=== PATIENT | male | born 1995 | race Caucasian/White ===

== ENCOUNTER 2017-02-24 10:00 | Emergency (ER) | payer OTHER ==
[2017-02-24 10:05] VITALS: BP 138/67; PULSE 68; TEMP 98.1; BMI 22.8
--- NOTE | 2017-02-24 10:40 | PDOC ---
History of Present Illness - General History Source: Patient Exam Limitations: No Limitations - History of Present Illness Initial Comments: 02/24/17 11:05 The patient is a 21 year old male, with no significant past medical history who presents to the emergency department with R flank pain for the past 2 weeks. Patient reports the pain was initially intermittent and resolved on its own however last night the pain progressively worsened and remained constant. Patient describes sharp, R sided pain, 8/10 in severity with no associated symptoms. Patient denies any hx of kidney stones. He denies dysuria, frequency , urgency or hematuria. Patient denies any heavy lifting. He denies chest pain, headache or dizziness. He denies fever, chills, abdominal pain, nausea, vomit, diarrhea or constipation. Patient denies sick contacts or recent travel. Allergies: NKA Past surgical history: None Social history: None PCP: Dr. Joaquin Youngblood <Kirsten Rico - Last Filed: 02/24/17 11:31> <Livia Hyman - Last Filed: 02/24/17 12:19> - General Chief Complaint: Pain, Acute Stated Complaint: LT SIDE PAIN Time Seen by Provider: 02/24/17 10:12 Past History <Kirsten Rico - Last Filed: 02/24/17 11:31> - Suicide/Smoking/Psychosocial Hx Smoking History: Never smoked Have you smoked in the past 12 months: No Information on smoking cessation initiated: No Hx Alcohol Use: Yes (Occasionally) Drug/Substance Use Hx: No Substance Use Type: None <Livia Hyman - Last Filed: 02/24/17 12:19> - Past Medical History Allergies/Adverse Reactions: Allergies Allergy/AdvReac Type Severity Reaction Status Date / Time No Known Allergies Allergy Verified 02/24/17 10:05 Home Medications: Ambulatory Orders NK [No Known Home Medication] 02/24/17 Review of Systems - Review of Systems Able to Perform ROS?: Yes Comments:: 02/24/17 11:05 GENERAL/CONSTITUTIONAL: No fever or chills. No weakness. HEAD, EYES, EARS, NOSE AND THROAT: No change in vision. No ear pain or discharge. No sore throat. GASTROINTESTINAL: No nausea, vomiting, diarrhea or constipation. GENITOURINARY: + R sided pain. No dysuria, frequency, or change in urination. CARDIOVASCULAR: No chest pain or shortness of breath. RESPIRATORY: No cough, wheezing, or hemoptysis. MUSCULOSKELETAL: No joint or muscle swelling or pain. No neck or back pain. SKIN: No rash NEUROLOGIC: No headache, vertigo, loss of consciousness, or change in strength/ sensation. ENDOCRINE: No increased thirst. No abnormal weight change. HEMATOLOGIC/LYMPHATIC: No anemia, easy bleeding, or history of blood clots. ALLERGIC/IMMUNOLOGIC: No hives or skin allergy. <Kirsten Rico - Last Filed: 02/24/17 11:31> *Physical Exam - Vital Signs Last Vital Signs Temp Pulse Resp BP Pulse Ox 98.1 F 68 14 138/67 98 02/24/17 10:02 02/24/17 10:02 02/24/17 10:02 02/24/17 10:02 02/24/17 10:02 - Physical Exam Comments: 02/24/17 11:05 GENERAL: Awake, alert, and fully oriented, in no acute distress HEAD: No signs of trauma EYES: PERRLA, EOMI, sclera anicteric, conjunctiva clear ENT: Auricles normal inspection, hearing grossly normal, nares patent, oropharynx clear without exudates. Moist mucosa NECK: Normal ROM, supple, no lymphadenopathy, JVD, or masses LUNGS: Breath sounds equal, clear to auscultation bilaterally. No wheezes, and no crackles HEART: Regular rate and rhythm, normal S1 and S2, no murmurs, rubs or gallops ABDOMEN: +Tenderness to R side in mid axillary line. Soft, nontender, normoactive bowel sounds. No guarding, no rebound. No masses EXTREMITIES: Normal range of motion, no edema. No clubbing or cyanosis. No cords, erythema, or tenderness NEUROLOGICAL: Cranial nerves II through XII grossly intact. Normal speech, normal gait SKIN: Warm, Dry, normal turgor, no rashes or lesions noted. <Kirsten Rico - Last Filed: 02/24/17 11:31> - Vital Signs Last Vital Signs Temp Pulse Resp BP Pulse Ox 98.1 F 68 14 138/67 98 02/24/17 10:02 02/24/17 10:02 02/24/17 10:02 02/24/17 10:02 02/24/17 10:02 <Livia Hyman - Last Filed: 02/24/17 12:19> Medical Decision Making - Medical Decision Making 02/24/17 12:[address] and UA results with patient- no UTI, no kidney stone. There is no obvious source of pain at present. Abd is soft and benign- I do not suspect gallbladder pathology, would not obtain additional testing at this time. He has an appointment with his PMD in 1 hour. Will DC. <Livia Hyman - Last Filed: 02/24/17 12:19> *DC/Admit/Observation/Transfer - Attestations Scribe Attestion: 02/24/17 11:05 Documentation prepared by Kirsten Rico, acting as biomedical electronics technician for Livia Hyman MD <Kirsten Rico - Last Filed: 02/24/17 11:31> - Discharge Dispostion Admit: No <Livia Hyman - Last Filed: 02/24/17 12:19> Diagnosis at time of Disposition: Right flank pain - Discharge Dispostion Disposition: HOME Condition at time of disposition: Stable - Referrals Referrals: Joaquin Youngblood [Primary Care Provider] - - Patient Instructions Printed Discharge Instructions: DI for Flank Pain
[2017-02-24 11:47] LABS: URINE APPEARANCE CLEAR; URINE BILIRUBIN NEGATIVE (NEGATIVE); URINE BLOOD NEGATIVE (NEGATIVE); URINE COLOR LT. YELLOW; URINE GLUCOSE (UA) NEGATIVE (NEGATIVE); URINE KETONE NEGATIVE (NEGATIVE); URINE NITRITE NEGATIVE (NEGATIVE); URINE PROTEIN NEGATIVE (NEGATIVE); URINE UROBILINOGEN 0.2 mg/dL (0.2-1.0)
[2017-02-24 13:33] LABS: URINE LEUK ESTERASE Negative (NEGATIVE)
== END 2017-02-24 12:30 | disposition home or self-care (01) ==
LOC: JER 10:00
DX: R10.31 Right lower quadrant pain (principal)
CPT/HCPCS: 74176; 81003; 99282-25